=== PATIENT | male | born 1990 | race Caucasian/White ===

== ENCOUNTER 2023-03-14 15:32 | Outpatient (CLI) | payer OTHER, SELFPAY ==
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
== END 2023-03-14 15:33 | disposition home or self-care (01) ==
PROVIDERS: PCP Family Medicine; Visit Provider Orthopaedic Surgery
DX: S92.045A Nondisplaced other fracture of tuberosity of left calcaneus, initial encounter for closed fracture (principal)
CPT/HCPCS: 73700

== ENCOUNTER 2023-09-19 13:45 | Outpatient (RCR) | payer OTHER, SELFPAY | END 2023-09-19 14:55 | disposition home or self-care (01) | PROVIDERS: PCP Family Medicine; Visit Provider Orthopaedic Surgery | DX: S92.002A Unspecified fracture of left calcaneus, initial encounter for closed fracture (principal); S43.109A Unspecified dislocation of unspecified acromioclavicular joint, initial encounter; S92.402A Displaced unspecified fracture of left great toe, initial encounter for closed fracture; M25.512 Pain in left shoulder; M25.612 Stiffness of left shoulder, not elsewhere classified; Z51.89 Encounter for other specified aftercare | CPT/HCPCS: 97110; 97112; 97161; 97162; 97530 ==